=== PATIENT | male | born 1975 | race African-American/Black ===

== ENCOUNTER 2017-10-30 06:42 | Emergency (ER) | payer OTHER ==
[~2017-10-30] VITALS: Ht 182.9 cm; Wt 90.9 kg
[2017-10-30 06:48] VITALS: Ht 182.9 cm; Wt 90.9 kg
[2017-10-30] MEDS ORDERED: ANAPROX DS550 MG PO (07:04)
[2017-10-30] MEDS ORDERED: HYDROCODON-ACE1 EAC7 PO (07:04)
[2017-10-30 07:21] VITALS: BP 128/86
== END 2017-10-30 07:21 | disposition home or self-care (01) ==
LOC: D.ER 06:42
DX: M75.102 Unspecified rotator cuff tear or rupture of left shoulder, not specified as traumatic (principal); M25.512 Pain in left shoulder; F17.200 Nicotine dependence, unspecified, uncomplicated

== ENCOUNTER → 2017-11-10 16:13 | Outpatient (CLI) | payer OTHER ==
[2017-10-30 06:48] VITALS: BMI 27.2
[~2017-11-10 16:13] MED LIST: ANAPROX DS550 MG PO; HYDROCODON-ACE1 EAC7 PO
== END | disposition home or self-care (01) ==
LOC: D.MRI 16:13
DX: M25.512 Pain in left shoulder (principal)

== ENCOUNTER 2018-05-05 09:27 | Day surgery (SDC) | payer OTHER ==
[~2018-05-05] VITALS: Ht 182.9 cm; Wt 90.7 kg
[2018-05-05 10:33] VITALS: Ht 182.9 cm; Wt 90.7 kg
[2018-05-05] MEDS ORDERED: DURICEF500 MG PO (14:08)
[2018-05-05] MEDS ORDERED: PERCOCET 7.5/321 TAB PO (14:08)
--- NOTE | 2018-05-05 15:19 | NUR ---
1515 PT EATING FULL LIQUID DIET
--- NOTE | 2018-05-05 16:34 | NUR ---
1530 PT TOLERATED FULL LIQUID DIET. 1550 IV DISCONTINUED. CATHETER INTACT. PRESSURE HELD. NO BLEEDING. BANDAID APPLIED. 1600 DR VARMA HERE TO SEE PT 1605 PT ASSISTED IN GETTING DRESSED. ARM SLING WITH BODY PAD ON AND IN PLACE TO KEEP ARM IN PROPER ALIGNMENT. PT HAS RECEIVED DISCHARGE INSTRUCTIONS AND HAS DISCHARGE PACKET. NO QUESTIONS ON PENDULUM EXERCISES. VERBALIZES UNDERSTANDING OF POST OPERATIVE INSTRUCTIONS.
--- NOTE | 2018-05-06 08:30 | OP ---
PATIENT NAME: RAMON SALCEDO MEDICAL RECORD: [id number] [facility] ADMISSION DATE: SURGEON: NICHO VARMA DO DATE OF OPERATION: 05/05/2018 PROCEDURES PERFORMED: Left shoulder arthroscopy with subacromial decompression, distal clavicle excision, labral debridement, mini open rotator cuff repair, and bicep tenodesis. PREOPERATIVE DIAGNOSES: Left shoulder rotator cuff tear, subacromial impingement, AC joint arthritis, and SLAP tear. POSTOPERATIVE DIAGNOSES: Left shoulder rotator cuff tear, subacromial impingement, AC joint arthritis, and SLAP tear. INDICATIONS: Mr. Salcedo is a 43-year-old male who presented to my office earlier this year around January. He was complaining of left shoulder pain with overhead use and lack of strength over the head, anything above the waist. He had been to therapy and tried injections to no avail. He got an MRI which demonstrated a partial-thickness rotator cuff tear and AC joint arthritis, subacromial impingement, and SLAP tear. I had a discussion with him saying that we could continue on conservative management. He had attempted all of it and decided he wanted something done surgically for his problem. He was informed of risks and benefits of the procedure including infection, bleeding, need for further surgery, retear of rotator cuff due to his smoking, damage to nerves and vessels as well. He was okay with those risks. He signed the consent. SURGEON: Nicho Varma DO DESCRIPTION OF PROCEDURE: The patient was taken to the operative suite and laid in the right lateral decubitus position after receiving a block by anesthesia in the preoperative area. The left shoulder was prepped and draped in sterile fashion. Time-out was performed. Everyone was in agreement with correct side, site, patient, and procedure. The patient received 900 mg of clindamycin preoperatively. After a time-out had been performed and everyone was in agreement with correct side, site, patient, and procedure, the 18-gauge spinal needle was entered into the shoulder joint itself through the posterior aspect of the shoulder and 60 mL of normal saline was insufflated into the shoulder joint itself. A 11 blade scalpel was then used to make a naseem in the skin for the posterior portal. The trocar was entered into the shoulder joint. The camera was then entered into the shoulder joint and a large SLAP tear was noted. The anterior portals were established with an 18-gauge spinal needle, 11 blade scalpel, and trocar. The burner was then brought in and the biceps was tenotomized at that point. Long head of the biceps and labrum was debrided. The subscapularis was inspected and seen to be in good repair. There was some fraying noted on the articular surface of the supraspinatus. There were no loose bodies seen in the inferior gutter of the shoulder. The cartilage seemed to be in good repair. No chondromalacia was noted. The scope was then put into the subacromial space and there was a lot of inflammatory tissue there and a lot of inflamed bursa. The lateral portal was then established with an 18-gauge spinal needle and 11 blade scalpel and a shaver was brought in to shave out the bursa that was still inflamed. Once this made the shoulder more viewable, the acromion was cleaned off as well as the AC joint with burner. Subacromial decompression was done, locking out the anterolateral acromion, creating more of space. Then, the bur was brought into the anterior portal and the distal OPERATIVE REPORT [id number] SALCEDO,RAY clavicle was excised in order to open up the AC joint 7 mm proximally. Then, the shaver was brought in from the lateral portal and cleaned off the rotator cuff more. There was no full-thickness tear noted on the bursal side; however, the articular side was revisited at that point and shaved back all the frayed tendon of the supraspinatus on the articular side. It was torn for greater than 50% thickness. This was then marked from the bursal side with an 18-gauge spinal needle through the lateral portal. The incision was made and enlarged from the lateral portal with a 15 blade knife. Careful dissection was then made down through the deltoid fascia to the tear that was marked. The tear was taken down on the bursal side. It was only hanging on by a few fibers of the supraspinatus. The greater tuberosity was then decorticated with a shaver and medial row anchor was placed. The Scorpion was used to bite through the supraspinatus and then a single lateral row was used to repair the tendon. It was a very nice repair. This site was then irrigated and the deltoid fascia was closed with 2-0 Vicryl in a [id number]-yw-jjlag fashion. Skin was closed with 2-0 Vicryl in inverted interrupted fashion and 4-0 Monocryl ran on the skin. Attention was then drawn to the biceps tenodesis site of the anterior humerus. Incision was made just inferior to the pec insertion. Dissection was made up to the interval between the pec and the deltoid and this is where the biceps tendon was encountered, pulled out through the wound. A whipstitch and then a single unicortical button were placed through the humerus and tied down the biceps tendon there. A free needle was then used to go back through the long head of biceps tendon and this was tied on top of that. This excess tendon and suture were then cut. The site was irrigated thoroughly and then closed with 2-0 Vicryl on the skin and 4-0 Monocryl ran on the skin. The portal sites were then closed with 4-0 Monocryl in inverted interrupted fashion and Dermabond was placed on all the incision sites. Telfa and Tegaderm were placed on them. The patient was then awakened and taken to recovery in stable condition. BLOOD LOSS: Minimal. COMPLICATIONS: None. TRANSINT:[id number] Voice Confirmation ID: [id number] DOCUMENT ID: [id number] NICHO VAMRA DO at 0830 CC: [id number] DICTATION DATE: 05/05/18 1416 [employer] OPERATOR: 05/05/18 1848 [facility] 05/05/18 [id number] [place] [address]
== END 2018-05-05 16:14 | disposition home or self-care (01) ==
LOC: D.OPS 09:27 → D.PAN 11:35 → D.OPS 14:15 → D.PAN 05-12 07:30
DX: M75.112 Incomplete rotator cuff tear or rupture of left shoulder, not specified as traumatic (principal); M75.42 Impingement syndrome of left shoulder; M13.812 Other specified arthritis, left shoulder; S43.432A Superior glenoid labrum lesion of left shoulder, initial encounter; X58.XXXA Exposure to other specified factors, initial encounter; Z01.812 Encounter for preprocedural laboratory examination